=== PATIENT | male | born 1950 | race Caucasian/White ===

== ENCOUNTER 2017-05-17 10:00 | Inpatient (IN) | payer BC, MEDICARE ==
[2017-05-23] MEDS ORDERED: METOCLOPRAMIDE 10 MG TABLET PO ONE (06:00)
[2017-05-23] MEDS ORDERED: VANCOMYCIN HCL 1,000 MG in 0.9 % SODIUM CHLORIDE 250ML 250 ML IVPB ONE (06:00)
[2017-05-23] MEDS ORDERED: FAMOTIDINE 20MG TABLET PO ONE (06:00)
[2017-05-23] MEDS ORDERED: CELECOXIB 100 MG CAPSULE PO ONE (06:00)
[2017-05-23] MEDS ORDERED: CEFAZOLIN 2 Gram 2 GM/50 ML BAG IVPB ONE (06:00)
[2017-05-23] MEDS ORDERED: MECLIZINE 25 MG TABLET PO ONE (06:00)
[2017-05-23] MEDS ORDERED: BUPIVACAINE 0.5% W/EPI MPF 30 ML VIAL IVP ONE (08:55)
[2017-05-23] MEDS ORDERED: TRANEXAMIC ACID 1,000 MG/10 ML ML IV ONE ×2 (08:55→14:00)
[2017-05-23] MEDS ORDERED: 0.9 % SODIUM CHLORIDE 10 ML VIAL IVP ONE (08:55)
[2017-05-23 09:37] LABS: ABO GROUP A; ANTIBODY SCREEN NEGATIVE (NEGATIVE); RH TYPE NEGATIVE
[2017-05-23] MEDS ORDERED: HYDROMORPHONE HCL 2 MG/ML VIAL IM PRN (13:55)
[2017-05-23] MEDS ORDERED: ACETAMINOPHEN W/ CODEINE 300MG/60MG TABLET PO PRN ×2 (13:55)
[2017-05-23] MEDS ORDERED: KETOROLAC 30 MG/ML VIAL IVP PRN ×2 (13:55)
[2017-05-23] MEDS ORDERED: HYDROCODONE/APAP 10/325 TABLET PO PRN (13:55)
[2017-05-23] MEDS ORDERED: NALOXONE 0.4 MG/1 ML VIAL IVP PRN (13:55)
[2017-05-23] MEDS ORDERED: HYDROMORPHONE HCL 1MG/ML **SYRINGE IM PRN (13:55)
[2017-05-23] MEDS ORDERED: DIPHENHYDRAMINE HCL 25 MG CAPSULE PO PRN (13:55)
[2017-05-23] MEDS ORDERED: AL HYDROX/MAG HYDROX 30ML UD PO PRN (13:55)
[2017-05-23] MEDS ORDERED: BISACODYL 10 MG SUPP RC PRN (13:55)
[2017-05-23] MEDS ORDERED: ONDANSETRON HCL IV 4 MG/2 ML VIAL IVP PRN (13:55)
[2017-05-23] MEDS ORDERED: ZOLPIDEM TARTRATE 5 MG TABLET PO PRN (13:55)
[2017-05-23] MEDS ORDERED: ACETAMINOPHEN 325 MG TAB PO PRN (13:55)
[2017-05-23] MEDS ORDERED: MAGNESIUM HYDROXIDE 30 ML UDC PO PRN (13:55)
[2017-05-23] MEDS ORDERED: SUCCINYLCHOLINE 20 MG/ML 10ML IVP ONE (15:47)
[2017-05-23] MEDS ORDERED: LIDOCAINE 2% MDV (20MG/ML) 20ML VIAL IV ONE (15:47)
[2017-05-23] MEDS ORDERED: EPHEDRINE SULFATE 50 MG/ML ML IV ONE (15:47)
[2017-05-23] MEDS ORDERED: PROPOFOL 10 MG/ML VIAL IV ONE (15:47)
[2017-05-23] MEDS ORDERED: FENTANYL PF 100MCG/2ML VIAL IV ONE (15:47)
[2017-05-23] MEDS ORDERED: MIDAZOLAM HCL 2MG/2ML VIAL IV ONE (15:47)
[2017-05-23] MEDS: HYDROCODONE/APAP 10/325 TABLET PO PRN ×2 (15:59→22:46)
--- NOTE | 2017-05-23 16:56 | Rehab Evaluation ---
Patient Information - Patient Information Diagnosis: R knee OA Ordered Treatment: PT Evaluate and Treat Status: Initial Evaluation Surgery: Yes Date of Surgery: 05/23/17 Past Medical/Surgical Hx: PAST MEDICAL/SURGICAL HISTORY Past Surgical History tonsils x's 2 left elbow hernias inguinal and umbilical c scopes PMH - Respiratory Hx Respiratory Disorders Yes Hx Asthma Yes: uses inhaler rarely 1x yr maybe Hx Bronchitis Yes Hx Sleep Apnea Yes: no testing per PMH - Cardiovascular Hx Cardiovascular Disorders Yes Hx Hypertension Yes: off meds now Exercise Tolerance Good PMH - Neuro Hx Neurological Disorders Yes Hx Headaches Yes: occass. 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 blood in urine neg workup PMH - Endocrine Hx Endocrine Disorders No Hx Diabetes No Hx Thyroid Disease No PMH - Musculoskeletal Hx Musculoskeletal Disorders Yes Hx Arthritis Yes Hx Gout Yes PMH - Psych Hx Psychiatric Problems Yes Hx Anxiety Yes Hx Depression Yes PMH - Hematology/Oncology Hx Hematology/Oncology Yes Disorders Hx Anemia Yes: deficent vit B Premorbid Status: Detail (The patient was independent with ambulation however ambulated with numerous gait deviations due to pain complaints.) Social History: Detail (The patient lives with spouse in a single story ranch home with 3 steps at the enterance. The patient's bathroom is equipped with a tub/shower combination, with a tub seat and hand held showerhead and a standard toilet. The bathroom does not have grab bars but the sink and window sill are within reach to push up on. The patient does assist with laundry, but not other java analyst. The patient has a walker and cane at home.) Precautions: [place], Other (WBAT on the R LE.) - Time With Patient Total Time Spent With Patient (Min): 25 Treatment Procedures: Detail (PT Evaluation, gait training. The patient completed LE exercises including quad sets, ankle pumps and SLR x 5 reps.) Subjective Information - Subjective Information Per Patient (The patient had complaints of lower back pain and minimal complaints of R knee pain. The patient did not rate his pain using 0-10 pain scale.) Objective Data - Mental Status Patient Orientation: Oriented x3 - Visual Perception Appears within normal limits for therapeutic activities - ROM Not within normal limits (The patient's R knee extension was 0 degrees. Flexion testing was deferred secondary to complaints of pain and S/P surgery. Patient's UE AROM and L LE AROM was WNL.) - Strength/Tone Within normal limits (The patient's L LE strength was generally 4+ to 5/5. The patient's R LE strength was functional ( The patient was able to complete a SLR. ) - Bed Mobility Independent (The patient was independent with sit to supine transfer. The patient was independent with scooting up in bed with use of trapeze.) - Transfers Independent (The patient was independent with stand to sit transfer and required supervision for safety only with toilet transfer.) - Balance Balance Sitting: Good Balance Standing: Good - Gait Detail (The patient ambulated with wheeled walker 11 feet x 1 and 108 feet x 1 with WBAT on R LE with supervision for safety only. The patient's gait pattern was characterized by decreased R knee flexion and trunk lean to the R during R stance phase.) Therapy Assessment - Therapy Assessment Detail (The patient exhibits decreased R knee AROM and strength as to be expected following surgery. Feel the patient will progress well with mobility.) Problem List - Problem List Physical Therapy Problem List: Detail (1) Limited R knee flexion AROM 2) Use of assistive device with bed mobility 3) Nonambulatory on stairs 4) Decreased R LE strength) Goals - Goals Physical Therapy Goals: 1) The patient will be independent with bed mobility without use of trapeze. 2) The patient will be independent with HEP. 3) The patient will ambulate on 3 steps with supervision for safety, WBAT on the R LE. 4) The patient will be independent with all transfers. Prognosis - Prognosis Good Plan - Plan Physical Therapy Plan: PT 1-2 times a day for gait training, transfer training, bed mobility and instruction in HEP.
[2017-05-23] MEDS: CEFAZOLIN 2 Gram 2 GM/50 ML BAG IVPB SCH (20:24)
[2017-05-23] MEDS: POTASSIUM CHLORIDE/D5-0.9%NACL 20 MEQ/1,000 ML BAG IV SCH ×2 (20:25→22:47)
[2017-05-23] MEDS: DOCUSATE SODIUM 100 MG CAPSULE PO SCH (21:23)
[2017-05-24] MEDS: CEFAZOLIN 2 Gram 2 GM/50 ML BAG IVPB SCH ×2 (02:53→11:17)
[2017-05-24] MEDS: HYDROCODONE/APAP 10/325 TABLET PO PRN ×2 (05:44→11:44)
[2017-05-24 06:28] LABS: HEMATOCRIT 36.2 % (42.0-52.0); HEMOGLOBIN 11.8 gm/dl (14.0-18.0)
[2017-05-24 06:39] LABS: BLOOD UREA NITROGEN 15 mg/dL (8-23); CREATININE 0.8 mg/dL (0.7-1.2); EST GLOMERULAR FILTRATION RATE > 60 mL/min; GLUCOSE,RANDOM 132 mg/dL (74-109)
--- NOTE | 2017-05-24 08:09 | Operative Note ---
DATE: 05/23/2017. PREOPERATIVE DIAGNOSIS: End-stage arthrosis of the right knee. POSTOPERATIVE DIAGNOSIS: End-stage arthrosis of the right knee. PROCEDURE: Cemented right total knee arthroplasty with [employer] II components with a size 7 Oxinium femur, a size 7 stemmed tibial base plate, a 9.0 mm lipped tibial insert, and a 35 mm all-plastic patella. STAFF SURGEON: Rogelio Cheng M.D. ANESTHESIA: Spinal. PREPARATION: ChloraPrep. INDIVIDUAL CONSIDERATIONS: None. PROCEDURE: The patient was taken to the operating room and placed supine on the operating table. He had successful induction of a general anesthetic. His right lower extremity was prepped and draped in the usual fashion. The limb was elevated and the tourniquet was inflated to 300 mm Hg. The patient had a midline approach to the knee. Sharp dissection was carried down through the skin and subcutaneous tissue. Small veins were coagulated with a Bovie. A medial arthrotomy was performed. The patella was everted and the knee was flexed. The patient had profound arthrosis with varus deformity, bone loss medially, and obviously no cartilage. Advanced changes were seen also in the patellofemoral and even in the lateral compartment. Provisional osteophytes were removed, the ACL was sacrificed, and provisional anterior meniscectomies were performed. The capsule was released from the medial proximal tibia. The initial femoral pilot boat captain hole was then made freehand. The intramedullary femoral cutting jig was placed. It was cut in 7.0 degrees of valgus and adjusted for rotation and secured with pins for a 10-mm resection. The initial transverse cut was then made. The skin guide was placed through the anterior and posterior pilot boat captain holes. It was found that a size 7 would be appropriate. The anterior and posterior cuts followed by chamfer cuts were made. Osteophytes which were huge were removed. A size 7 trial was placed and was found to fit well. The tibia was brought forward and the remainder of the meniscal remnants were removed with a Bovie. The patient had huge loose bodies, even posteriorly, and one in the pouch. These were removed. The extra-articular tibial cutting jig was placed. It was cut in neutral with a 3.0 degree AP slope. Care was taken to adjust the rotation and flexion using the extra-articular alignment guide and bony landmarks. It was set for a 9.0 mm resection, keyed off the high lateral side, and secured with pins. When cutting the tibia, care was taken to preserve the PCL insertion on the tibia. Huge medial osteophytes were removed, some of them over 1.0 cm. After I trimmed the osteophytes, I was able to fit a size 7 baseplate trial. This was adjusted for rotation and secured with pins. With a 9.0 mm femoral trial, there was excellent motion and stability. Ligamentous balance and rotation alignment were found to be normal. The femoral pilot boat captain holes were impacted, a triflange tibial stamp was impacted, and these pilot boat captain holes were removed. The patient had a very thick patella. Roughly 9.0 mm of bone was removed, along with trimming osteophytes. I could easily fit a 35 patella. The three pilot boat captain holes were then drilled. The tourniquet was then let down briefly to get bleeders posteriorly and was then placed back up again. The knee was then thoroughly irrigated out with pulsatile Betadine and saline to remove any visual or palpable debris. The bony surfaces were then dried. A size 7 stemmed tibial baseplate was cemented into place followed by impaction of the 9.0 mm lipped highly crosslinked tibial insert. This was followed by cementing in the size 7 Oxinium femur. This was then followed by cementing in the 35 mm patella. Implant surfaces were compressed. Excess cement was removed and after the cement had set there was excellent motion and stability. Ligamentous balance, rotation, alignment, and patellofemoral tracking were normal. No lateral release was required. The tourniquet was then let down. Hemostasis was obtained with a Bovie. A total of 30 cc of Marcaine with epinephrine was then infiltrated in the periosteum, the skin, and subcutaneous tissues with a 20-gauge spinal needle. The capsule was then closed with a running #2 cryl, subcutaneous was closed with running 0 Quill in layers, and the skin was closed with a zip line. A total of 40 cc of saline was mixed with 1.0 gm of tranexamic acid and was injected it into the knee through a sterile 18-gauge needle. The patient had received 1.0 gm of tranexamic acid IV prior to the procedure. The patient tolerated the procedure. Needle and sponge counts were correct. Estimated blood loss was minimal. He was taken back to the recovery room in good condition. An Aquacel dressing was applied. There were no complications. NATHAN
[2017-05-24] MEDS: DOCUSATE SODIUM 100 MG CAPSULE PO SCH (09:09)
[2017-05-24] MEDS ORDERED: FERROUS SULFATE 325 MG TAB PO SCH (10:00)
[2017-05-24] MEDS ORDERED: RIVAROXABAN 10 MG TABLET PO SCH (10:00)
--- NOTE | 2017-05-24 10:27 | Physical Therapy Tx Note ---
Physical Therapy Tx Note - Treatment Note Tolerated: Good Total Time Spent With Patient: 20 Physical Therapy Tx Note: Detail (The patient was independent with supine to sit without use of trapeze. The patient was independent with sit to stand from both high and low surfaces but required more effort with standing from low surface. The patient ambulated on 3 stairs with supervision for safety of 1 with use of folded walker and railing, WBAT on the R LE. The patient ambulated with wheeled walker , WBAT on the R LE a distance of 75 feet x 1 independently. The patient exhibited an improved gait pattern. The patient completed LE exercises including seat heel slides , hamstring sets , entire HEP was reviewed. Knee flexion was measured as 70 degrees. The patient completed all PT skills as an inpatient and is independent with HEP. The patient will be seen this pm for ambulation with the 4 wheeled walker that the patient has at home.) Physical Therapy Problem List: Detail (1) Limited R knee flexion AROM 2) Use of assistive device with bed mobility 3) Nonambulatory on stairs 4) Decreased R LE strength) Physical Therapy Goals: 1) The patient will be independent with bed mobility without use of trapeze. 2) The patient will be independent with HEP. 3) The patient will ambulate on 3 steps with supervision for safety, WBAT on the R LE. 4) The patient will be independent with all transfers. Physical Therapy Plan: PT 1-2 times a day for gait training, transfer training, bed mobility and instruction in HEP.
--- NOTE | 2017-05-24 10:37 | Rehab Evaluation ---
Patient Information - Patient Information Diagnosis: R knee OA Ordered Treatment: OT Evaluate and Treat Status: Initial Evaluation Surgery: Yes Date of Surgery: 05/23/17 Past Medical/Surgical Hx: PAST MEDICAL/SURGICAL HISTORY Past Surgical History tonsils x's 2 left elbow hernias inguinal and umbilical c scopes PMH - Respiratory Hx Respiratory Disorders Yes Hx Asthma Yes: uses inhaler rarely 1x yr maybe Hx Bronchitis Yes Hx Sleep Apnea Yes: no testing per PMH - Cardiovascular Hx Cardiovascular Disorders Yes Hx Hypertension Yes: off meds now Exercise Tolerance Good PMH - Neuro Hx Neurological Disorders Yes Hx Headaches Yes: occass. 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 blood in urine neg workup PMH - Endocrine Hx Endocrine Disorders No Hx Diabetes No Hx Thyroid Disease No PMH - Musculoskeletal Hx Musculoskeletal Disorders Yes Hx Arthritis Yes Hx Gout Yes PMH - Psych Hx Psychiatric Problems Yes Hx Anxiety Yes Hx Depression Yes PMH - Hematology/Oncology Hx Hematology/Oncology Yes Disorders Hx Anemia Yes: deficent vit B Premorbid Status: Detail (Pt lives with spouse in a 1 story house with basement , he will be staying on the first floor. He has 3 steps with frank handrailings at the entrance. He has a tub/shower combination, hand held shower, no grab bars and he usually sits on a 5 gallon bucket to shower. He has a standard height toilet with a riser, no grab bar but the sink and windowsill are close and he uses these for assist. He has a 4 wheeled walker and a cane as well as a item repair manager and long shoe horn. His will be completing all home mgmt, meal prep and laundry after discharge.) Social History: Detail (Supportive .) Precautions: [place], Other (WBAT on the R LE.) - Time With Patient Total Time Spent With Patient (Min): 40 Treatment Procedures: Detail (OT eval low complexity) Subjective Information - Subjective Information Per Patient Objective Data - Pain Pain Present: Yes (2/10 right knee and upper leg) - Mental Status Patient Orientation: Oriented x3 - Visual Perception Appears within normal limits for therapeutic activities - ROM Within normal limits (Frank UE AROM WNL) - Strength/Tone Within normal limits (Frank UE strength WNL.) - Coordination Appears within normal limits for therapeutic activities - Bed Mobility Independent (Ind with supine to sit.) - Transfers Independent (Ind with sit to stand from EOB although he had some difficulty.) - Balance Balance Sitting: Good Balance Standing: Good - Sensation Intact - Gait Detail (Pt able to ambulate in hallway with 2 wheeled walker Indly.) - ADL's/IADL's Detail (Pt educated re: modified LE dressing technique and use of item repair manager and shoe horn. He was able to don t shirt, shorts and velcro closure tennis shoes Indly. Education provided re: tub transfer, pt reports he has a claw foot tub and will be sponge bathing temporarily.) Therapy Assessment - Therapy Assessment Detail (Pt Ind with total body dressing using modified dressing techniques.) Problem List - Problem List Physical Therapy Problem List: Detail (1) Limited R knee flexion AROM 2) Use of assistive device with bed mobility 3) Nonambulatory on stairs 4) Decreased R LE strength) Occupational Therapy Problem List: Detail (No current OT problems identified.) Goals - Goals Physical Therapy Goals: 1) The patient will be independent with bed mobility without use of trapeze. 2) The patient will be independent with HEP. 3) The patient will ambulate on 3 steps with supervision for safety, WBAT on the R LE. 4) The patient will be independent with all transfers. Occupational Therapy Goals: No current OT goals identified. Prognosis - Prognosis Good Plan - Plan Physical Therapy Plan: PT 1-2 times a day for gait training, transfer training, bed mobility and instruction in HEP. Occupational Therapy Plan: Discharge pt from IP OT at this time. Thank you for this referral.
--- NOTE | 2017-05-24 14:54 | Physical Therapy Tx Note ---
Physical Therapy Tx Note - Treatment Note Tolerated: Good Total Time Spent With Patient: 15 Physical Therapy Tx Note: Detail (The patient was fitted for a wheeled walker, bariatric. The patient's 4 wheeled waker was too small and unsafe.) Physical Therapy Problem List: Detail (1) Limited R knee flexion AROM 2) Use of assistive device with bed mobility 3) Nonambulatory on stairs 4) Decreased R LE strength) Physical Therapy Goals: 1) The patient will be independent with bed mobility without use of trapeze. 2) The patient will be independent with HEP. 3) The patient will ambulate on 3 steps with supervision for safety, WBAT on the R LE. 4) The patient will be independent with all transfers. Physical Therapy Plan: The patient has met all PT inpatient goals.
--- NOTE | 2017-05-24 15:40 | Discharge Summary ---
DATE OF ADMISSION: 05/23/17 DATE OF DISCHARGE: 05/24/17 DATE OF SURGERY: 05/23/17 HISTORY: Mr. Linder is a delightful 67-year-old male who presents with end- stage arthrosis of his right knee. He was admitted after right total knee arthroplasty. Postoperatively, he did fantastic. His hospital course was unremarkable. The plan is to DISCHARGE INSTRUCTIONS: The plan is to discharge him home in the care of his family. He is going to go to outpatient PT and he has a family member who is a wound nurse who is going to attend to his wound. He will be given Xarelto for DVT prophylaxis and [place] for pain and he should follow-up in my office in four weeks. DISCHARGE CONDITION: Good. FINAL DIAGNOSIS/PERMANENT DIAGNOSIS: End-stage arthrosis of the right knee. OPERATIONS AND PROCEDURES: Cemented right total knee arthroplasty. JOB NUMBER: [id number] MTDD
== END 2017-05-24 16:10 | disposition home or self-care (01) | DRG 470 ==
LOC: MEDSURG 05-23 08:52
PROVIDERS: ADMIT Orthopaedic Surgery; ATTEND Orthopaedic Surgery
PROC: 0SRC069 Replacement of Right Knee Joint with Oxidized Zirconium on Polyethylene Synthetic Substitute, Cemented, Open Approach (ICD-10-PCS; principal; 2017-05-23 11:00)
DX: M17.11 Unilateral primary osteoarthritis, right knee (principal); J44.9 Chronic obstructive pulmonary disease, unspecified; I10 Essential (primary) hypertension; Z87.891 Personal history of nicotine dependence
CPT/HCPCS: 80048; 85014; 85018; 86850; 86900; 86901; 94760; 97165; 97530; 99233; J0330; J3480; J7050

== ENCOUNTER 2017-07-18 08:44 | Inpatient (IN) | payer BC, MEDICARE ==
[~2017-07-18 08:44] MED LIST: ACETAMINOPHEN 1,000 MG/100 ML BTL IV ONE; CEFAZOLIN 2 Gram 2 GM/50 ML BAG IVPB ONE; CELECOXIB 100 MG CAPSULE PO ONE; FAMOTIDINE 20MG TABLET PO ONE; MECLIZINE 25 MG TABLET PO ONE; METOCLOPRAMIDE 10 MG TABLET PO ONE; VANCOMYCIN HCL 1,000 MG in 0.9 % SODIUM CHLORIDE 250ML 250 ML IVPB ONE
[2017-07-18 09:42] LABS: ABO GROUP A; ANTIBODY SCREEN NEGATIVE (NEGATIVE); RH TYPE NEGATIVE
[2017-07-18] MEDS ORDERED: AL HYDROX/MAG HYDROX 30ML UD PO PRN (13:05)
[2017-07-18] MEDS ORDERED: HYDROCODONE/APAP 10/325 TABLET PO PRN (13:05)
[2017-07-18] MEDS ORDERED: DIPHENHYDRAMINE HCL 25 MG CAPSULE PO PRN (13:05)
[2017-07-18] MEDS ORDERED: BISACODYL 10 MG SUPP RC PRN (13:05)
[2017-07-18] MEDS ORDERED: HYDROMORPHONE HCL 1MG/ML **SYRINGE IM PRN (13:05)
[2017-07-18] MEDS ORDERED: ACETAMINOPHEN W/ CODEINE 300MG/60MG TABLET PO PRN ×2 (13:05)
[2017-07-18] MEDS ORDERED: ACETAMINOPHEN 325 MG TAB PO PRN (13:05)
[2017-07-18] MEDS ORDERED: NALOXONE 0.4 MG/1 ML VIAL IVP PRN (13:05)
[2017-07-18] MEDS ORDERED: HYDROMORPHONE HCL 2 MG/ML VIAL IM PRN (13:05)
[2017-07-18] MEDS ORDERED: KETOROLAC 30 MG/ML VIAL IVP PRN ×2 (13:05)
[2017-07-18] MEDS ORDERED: TRAMADOL HCL 50 MG TABLET PO PRN (13:05)
[2017-07-18] MEDS ORDERED: MAGNESIUM HYDROXIDE 30 ML UDC PO PRN (13:05)
[2017-07-18] MEDS ORDERED: ZOLPIDEM TARTRATE 5 MG TABLET PO PRN (13:05)
[2017-07-18] MEDS ORDERED: ONDANSETRON HCL IV 4 MG/2 ML VIAL IVP PRN (13:05)
[2017-07-18] MEDS: POTASSIUM CHLORIDE/D5-0.9%NACL 20 MEQ/1,000 ML BAG IV SCH ×2 (14:24→22:02)
[2017-07-18] MEDS ORDERED: MIDAZOLAM HCL 2MG/2ML VIAL IV ONE (16:02)
[2017-07-18] MEDS ORDERED: TRANEXAMIC ACID 1,000 MG/10 ML ML IV ONE ×2 (16:02)
[2017-07-18] MEDS ORDERED: 0.9 % SODIUM CHLORIDE 10 ML VIAL IVP ONE (16:02)
[2017-07-18] MEDS ORDERED: BUPIVACAINE 0.75% W/EPI MPF 30ML VIAL IVP ONE (16:02)
[2017-07-18] MEDS ORDERED: FENTANYL PF 100MCG/2ML VIAL IV ONE (16:02)
[2017-07-18] MEDS ORDERED: PROPOFOL 10 MG/ML VIAL IV ONE (16:02)
--- NOTE | 2017-07-18 16:27 | Rehab Evaluation ---
Patient Information - Patient Information Diagnosis: L knee OA Ordered Treatment: PT Evaluate and Treat Status: Initial Evaluation Surgery: Yes Date of Surgery: 07/18/17 Past Medical/Surgical Hx: PAST MEDICAL/SURGICAL HISTORY Past Surgical History RTKA tonsils x's 2 left elbow hernias inguinal and umbilical c scopes PMH - Respiratory Hx Respiratory Disorders Yes Hx Asthma Yes: uses inhaler rarely 1x yr maybe Hx Bronchitis Yes Hx Sleep Apnea Yes: no testing per PMH - Cardiovascular Hx Cardiovascular Disorders Yes Hx Hypertension Yes: off meds now PMH - Neuro Hx Neurological Disorders Yes Hx Headaches Yes: occass. 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 blood in urine neg workup Hx Urinary Tract Infection Yes: recent since last surgery just finished ABX PMH - Endocrine Hx Endocrine Disorders No Hx Diabetes No Hx Thyroid Disease No PMH - Musculoskeletal Hx Musculoskeletal Disorders Yes Hx Arthritis Yes Hx Gout Yes PMH - Psych Hx Psychiatric Problems Yes Hx Anxiety Yes Hx Depression Yes PMH - Hematology/Oncology Hx Hematology/Oncology Yes Disorders Hx Anemia Yes: deficent vit B Premorbid Status: Detail (The patient was independent with all mobility prior to surgery.) Social History: Detail (The patient lives with spouse in a single story home with 4 steps at the enterance with 2 railings. The patient's bathroom is equipped with a claw tub and raised toilet seat. The patient has a standard cane, and wheeled walker.) Precautions: [place], Other (WBAT on the L LE) - Time With Patient Total Time Spent With Patient (Min): 30 Treatment Procedures: Detail (Initial Evaluation.) Subjective Information - Subjective Information Per Patient (The patient had complaints of L knee pain .) Objective Data - Pain Pain Present: Yes Pain Intensity: 6 Pain Scale Used: Numeric (1 - 10) - Mental Status Patient Orientation: Oriented x3 - Visual Perception Appears within normal limits for therapeutic activities - ROM Not within normal limits (The patient's L knee AROM was not formally tested secondary to status post surgery.) - Strength/Tone Not within normal limits (The patient's R LE strength is generally 4 to 4+/5. The patient's L LE strength was not formally tested , however it was functional ie: the patient was able to complete a SLR.) - Bed Mobility Independent (The patient was independent with supine to and from sit transfer and scooting up in bed.) - Transfers Independent (The patient was independent with sit to and from stand transfer) - Balance Balance Sitting: Good Balance Standing: Good - Sensation Intact - Gait Detail (The patient ambulated with wheeled walker a distance of 75 feet x 1 with supervision of one plus to handle IV , WBAT on the L LE.) Therapy Assessment - Therapy Assessment Detail (The patient was independent with bed mobility , transfers and supervision for with ambulation for safety. Feel the patient will progress well with mobility.) Problem List - Problem List Physical Therapy Problem List: Detail (1) Decreased L knee AROM and strength as to be expected following surgery. 2) Nonambulatory on stairs) Goals - Goals Physical Therapy Goals: 1) The patient will be independent with ambulation with assistive device on levels and stairs WBAT on the L LE. 2) The patient will be independent with all transfers. 3) The patient will be independent with HEP Prognosis - Prognosis Good Plan - Plan Physical Therapy Plan: PT 1-2 times a day for gait training, transfer training and instruction in HEP until inpatient PT goals are met.
--- NOTE | 2017-07-18 17:08 | Operative Note ---
DATE OF SURGERY: 07/18/17 PREOPERATIVE DIAGNOSIS: PROFOUND END-STAGE ARTHROSIS OF THE LEFT KNEE. POSTOPERATIVE DIAGNOSIS: PROFOUND END-STAGE ARTHROSIS OF THE LEFT KNEE. PROCEDURE: CEMENTED LEFT TOTAL KNEE ARTHROPLASTY USING JACKSON-NEPHEW ANJU II COMPONENTS WITH A SIZE 7 OXINIUM FEMUR, A SIZE 7 STEM TIBIAL BASEPLATE, A 9 mm LIPPED HIGHLY CROSSLINKED TIBIAL INSERT, AND A 35 MM ALL-PLASTIC PATELLA. STAFF SURGEON: CLAUDETTE TRINH M.D. ANESTHESIA: SPINAL. PREPARATION: CHLORAPREP. INDIVIDUAL CONSIDERATIONS: NONE. PROCEDURE: The patient was taken to the Operating Room and placed supine on the operating table. He had a successful induction of a spinal anesthetic. His left lower extremity was prepped and draped in the usual fashion. The limb was elevated. The tourniquet was inflated to 300 mmHg. The patient had a midline approach to the knee. Sharp dissection was carried down through the skin and subcutaneous tissues. Small veins were coagulated with a Bovie. A medial arthrotomy was performed. Patella was everted and the knee was flexed. He had profound end-stage arthrosis. He had a loose body almost the size of a golf ball, a large patellar osteophytes was removed. Fat pad was resected, ACL was sacrificed, and provisional anterior meniscectomies were performed. He had a very severe varus deformity with bone loss medially. The initial femoral airline pilot flight instructor hole was then made freehand. The intramedullary femoral cutting jig was placed. It was cut in 7.0 degrees of valgus and adjusted for rotation and secured with pins for a 10 mm resection. The initial transverse cut was then made. Skin guide was placed for the anterior and posterior airline pilot flight instructor holes. It was found that a size 7 would be appropriate. The anterior and posterior cuts followed by chamfer cuts were made, osteophytes removed, and a size 7 trial was found to fit well. The tibia was brought forward and the remainder of the meniscal remnants were removed with a Bovie. The extra-articular tibial cutting jig was placed and it was cut in neutral with a 3-degree AP slope. Care was taken to adjust for rotation and flexion using the extra-articular alignment guide and bony landmarks. It was set for a 9 mm resection and keyed off the high lateral side and secured with pins. When cutting the tibia, care was taken to preserve the PCL insertion on the tibia. After making the cut and removing osteophytes, it was found that a size 7 would be appropriate. It was adjusted for rotation and secured with pins. With an 11 mm trial and the femoral trial, there was excellent motion and stability. Ligamentous balance, rotation, and alignment were thought to be normal. The femoral airline pilot flight instructor holes were impacted and the triflange tibial stamp was impacted, and these trial components were removed. The patient had a very thick patella and roughly 9 mm of bone was removed freehand. I was easily able to fit a 35 patella and the three airline pilot flight instructor holes were then drilled. The tourniquet was let down briefly to get good bleeders posteriorly then placed back up again. The knee was then thoroughly irrigated out with pulsatile Betadine and saline to remove any visual or palpable debris. Bony surfaces were then dried. A size 7 stemmed tibial baseplate was cemented into place, followed by impaction of the 11 mm lipped tibial insert, followed by cementing in the size 7 Oxinium femur, followed by cementing of a 35 mm patella. Implant surfaces were compressed, excess cement was removed, and after the cement had set, there was excellent motion and stability, ligamentous balance, rotation, alignment, and patellofemoral tracking were normal, and no lateral release was required. Again, thorough irrigation. The tourniquet was let down. Hemostasis was obtained with a Bovie. The skin, subcutaneous, and periosteum were then infiltrated with 30 mL of 0.75% Marcaine with Epinephrine. The capsule was then closed with a running #2 quill, the subcutaneous was closed in layers with running 0 quill, and the skin was closed with jarod. The patient did receive 1 gram of Tranexamic Acid preoperatively. I mixed 1 gram of Tranexamic Acid with 30 mL of saline and this was injected into the knee through a sterile 18-gauge needle, and a sterile Bulkee compressive Aquacel -type dressing was applied. The patient tolerated the procedures well. Needle and sponge counts were correct. Estimated blood loss was minimal and he was taken back to the Recovery Room in good condition. There were no complications. cc: Dr. Leobardo Adam JOB NUMBER: [id number] MTDD
[2017-07-18] MEDS: CEFAZOLIN 2 Gram 2 GM/50 ML BAG IVPB SCH (19:20)
[2017-07-18] MEDS: HYDROCODONE/APAP 10/325 TABLET PO PRN (20:34)
[2017-07-18] MEDS ORDERED: TAMSULOSIN HCL 0.4 MG CAP.ER.24H PO SCH (22:00)
[2017-07-18] MEDS: DOCUSATE SODIUM 100 MG CAPSULE PO SCH (22:01)
[2017-07-19] MEDS: HYDROCODONE/APAP 10/325 TABLET PO PRN ×4 (03:27→17:29)
[2017-07-19] MEDS: CEFAZOLIN 2 Gram 2 GM/50 ML BAG IVPB SCH ×2 (05:10→11:48)
[2017-07-19 06:34] LABS: HEMATOCRIT 34.7 % (42.0-52.0); HEMOGLOBIN 10.8 gm/dl (14.0-18.0)
[2017-07-19 06:50] LABS: BLOOD UREA NITROGEN 11 mg/dL (8-23); CREATININE 0.8 mg/dL (0.7-1.2); EST GLOMERULAR FILTRATION RATE > 60 mL/min; GLUCOSE,RANDOM 123 mg/dL (74-109)
[2017-07-19] MEDS: DOCUSATE SODIUM 100 MG CAPSULE PO SCH (09:19)
[2017-07-19] MEDS ORDERED: RIVAROXABAN 10 MG TABLET PO SCH (10:00)
[2017-07-19] MEDS ORDERED: MAGNESIUM OXIDE 400 MG TABLET PO SCH (10:00)
[2017-07-19] MEDS ORDERED: FERROUS SULFATE 325 MG TAB PO SCH (10:00)
--- NOTE | 2017-07-19 10:25 | Physical Therapy Tx Note ---
Physical Therapy Tx Note - Treatment Note Tolerated: Good (Pt. reported 6/10 pain at start of tx, increased to 8/10 during gait training and went back down to 5/10 at end of tx. Pt. denied nausea and SOB.) Total Time Spent With Patient: 30 Physical Therapy Tx Note: Detail (Pt. ambulated ~20 feet with front wheeled walker and CGA. Pt. ambulated to the bathroom and was successful with void attempt. Pt. performed the following seated exercises: heel slides, 10x; hip abduction isometrics, 10x; hip adduction isometrics, 10x; ankle pumps 30 repetitions. Pt. was independent with bed mobility and transfers. Pt. verbalized understanding of HEP, precautions, and the disease process. Pt. was left seated with call light available and cryo LLE.) Physical Therapy Problem List: Detail (1) Decreased L knee AROM and strength as to be expected following surgery. 2) Nonambulatory on stairs) Physical Therapy Goals: 1) The patient will be independent with ambulation with assistive device on levels and stairs WBAT on the L LE. Prognosis: Good (Pt. is expected to complete stairs in the PM session and be appropriate for D/C to home environment.) Physical Therapy Plan: Pt. is to be seen for stair training at 2 o'clock on 07-19, and be D/C from inpatient PT if stair training skills have been met for safe return to home environment.
--- NOTE | 2017-07-19 12:35 | Rehab Evaluation ---
Patient Information - Patient Information Diagnosis: L knee OA Ordered Treatment: OT Evaluate and Treat Status: Initial Evaluation Surgery: Yes Date of Surgery: 07/18/17 Past Medical/Surgical Hx: PAST MEDICAL/SURGICAL HISTORY Past Surgical History RTKA tonsils x's 2 left elbow hernias inguinal and umbilical c scopes PMH - Respiratory Hx Respiratory Disorders Yes Hx Asthma Yes: uses inhaler rarely 1x yr maybe Hx Bronchitis Yes Hx Sleep Apnea Yes: no testing per PMH - Cardiovascular Hx Cardiovascular Disorders Yes Hx Hypertension Yes: off meds now PMH - Neuro Hx Neurological Disorders Yes Hx Headaches Yes: occass. 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 blood in urine neg workup Hx Urinary Tract Infection Yes: recent since last surgery just finished ABX PMH - Endocrine Hx Endocrine Disorders No Hx Diabetes No Hx Thyroid Disease No PMH - Musculoskeletal Hx Musculoskeletal Disorders Yes Hx Arthritis Yes Hx Gout Yes PMH - Psych Hx Psychiatric Problems Yes Hx Anxiety Yes Hx Depression Yes PMH - Hematology/Oncology Hx Hematology/Oncology Yes Disorders Hx Anemia Yes: deficent vit B Premorbid Status: Detail (The patient was independent with all mobility prior to surgery. Daughter and spouse assisted with some I/ADL's (i.e. meal prep), but pt. was mostly independent prior to sx. Pt. 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 reports does not interfere with activities at this time. Pt. reports LUE CTS and a bone spur in neck that causes occasional numbness in RUE.) Social History: Detail (The patient lives with spouse in a single story home with 4 steps at the entrance with 2 railings. The patient's bathroom is equipped with a claw tub and raised toilet seat. The patient has a carpenter mate, standard cane, and wheeled walker.) Precautions: [place], Other (WBAT on the L LE) - Time With Patient Total Time Spent With Patient (Min): 25 Objective Data - Pain Pain Present: Yes (5/10 L knee pain) - Mental Status Patient Orientation: Oriented x3 - Visual Perception Appears within normal limits for therapeutic activities - ROM Within normal limits (BUE) - Strength/Tone Within normal limits (BUE 4+/5 MMT) - Coordination Appears within normal limits for therapeutic activities - Balance Balance Sitting: Good - Sensation Intact (occasional numbness BUE hands/fingers, but light touch in tact when tested.) - ADL's/IADL's Detail (Pt. was sore and fatigued d/t just finishing with PT prior to eval and was seated in chair, so was not observed transfering and declined to participate in ADL activities (he just performed some). Educ. was provided in adaptive dressing techniques and use of AE (i.e. carpenter mate, sock aid, tub bench for shower t/f's, etc.). Pt. verbalized understanding and described how he would dress BLE. Pt. was unable to reach BLE while seated in chair. Educ. provided in use of carpenter mate tool to assist dressing and maximize safety. Pt. stated his daughter (who was present) is a wound care nurse, and will be available to assist as needed, including dressing and bathing. Educ. provided in using OT CTS wrist splint at night to prevent progression of numbness, and options to build up & soften walker or cane handles if the frequent gripping starts to bother his hands.) Therapy Assessment - Therapy Assessment Detail (Discussed potential of in-home OT eval to maximize safety and independence, but pt. & family declined d/t daughter's expertise as a nurse. In- pt. skilled OT services not recommended at this time. Pt. has awareness of available AE, dressing techniques, and a positive support system ( and daughter) to help prn.) Patient Education - Patient Education Teaching Topic: Community Resources, Equipment Use Response: Verbalize Understanding Teaching Method: Discussion Teaching Recipient: Patient, Family ( & daughter (nurse)) Barriers To Learning: None Problem List - Problem List Physical Therapy Problem List: Detail (1) Decreased L knee AROM and strength as to be expected following surgery. 2) Nonambulatory on stairs) Goals - Goals Physical Therapy Goals: 1) The patient will be independent with ambulation with assistive device on levels and stairs WBAT on the L LE. Prognosis - Prognosis Good Plan - Plan Physical Therapy Plan: Pt. is to be seen for stair training at 2 o'clock on 07-19, and be D/C from inpatient PT if stair training skills have been met for safe return to home environment. Occupational Therapy Plan: D/C from in-pt. OT services at this time. Pt. was instructed to call rehab dept. if questions/concerns when arrive home.
--- NOTE | 2017-07-19 14:55 | Physical Therapy Tx Note ---
Physical Therapy Tx Note - Treatment Note Tolerated: Good Total Time Spent With Patient: 20 Physical Therapy Tx Note: Detail (Pt. reports pain in knee is 6/10 right now. Pt. completed supine to sit transfer in bed, requiring verbal cueing to use his opposite leg to hook his other leg to help complete a safe transfer. Pt. completed an independent sit to stand transfer CGA x1 with the use of a front- wheeled walker. Pt. ambulated roughly 110 ft independently CGA x1 with front- wheeled walker. Pt. independently descending and ascended 3 steps for a total of 6 steps CGA x1 with the use of hand railing and walker for support demonstrating appropriate use of leg when going up and down. Pt. does have four steps to ascend/descend at home, but PT believes he is safe to transition home due to him having experience from having his other knee replaced in the past, bilateral hand railling, and family support at home to ensure a safe transfer. Pt. verbalized understanding of how to complete transfers and stairs at home and verbalized understanding of his precautions. Pt. completed a sit to supine transfer independently, but required verbal cueing of using his opposite leg to hook his other leg to complete a safe transfer. Pt. has met all goals for inpatient PT and is ready for discharge. Pt. was left supine in bed with IPC's hooked up and cold pack placed on knee. Call light was made available and nursing staff was notified.) Physical Therapy Problem List: Detail (1) Decreased L knee AROM and strength as to be expected following surgery. 2) Nonambulatory on stairs) Physical Therapy Goals: 1) The patient will be independent with ambulation with assistive device on levels and stairs WBAT on the L LE. (Goal MET) Prognosis: Good Physical Therapy Plan: Pt. has met all goals for inpatient PT and is to be discharged from inpatient PT services at this time.
[2017-07-19] MEDS: POTASSIUM CHLORIDE/D5-0.9%NACL 20 MEQ/1,000 ML BAG IV SCH (15:18)
--- NOTE | 2017-07-19 20:02 | Discharge Summary ---
DATE OF ADMISSION: 07/18/17 DATE OF DISCHARGE: 07/19/17 DATE OF SURGERY: 07/18/17 HISTORY: Mr. Garnett is a delightful 67-year-old male who presents with profound end-stage arthrosis of his left knee. He was admitted after a left total knee arthroplasty. Postoperatively he did great. His hospital course was unremarkable. He was independent after surgery. DISCHARGE INSTRUCTIONS: The plan is to discharge him to home into the care of his family. He has a daughter that's a wound care nurse and she's going to remove his sutures in two weeks. He is going to start outpatient physical therapy this Monday. He will be maintained on Xarelto for DVT prophylaxis for 15 days and I want him to take a regular Aspirin daily for 30 days. He will follow-up in my office in four weeks. FINAL DIAGNOSIS/PRIMARY DIAGNOSIS: END-STAGE ARTHROSIS OF THE LEFT KNEE. SECONDARY DIAGNOSES: OPERATIVE BLOOD LOSS ANEMIA. OPERATIONS AND PROCEDURES: CEMENTED LEFT TOTAL KNEE ARTHROPLASTY. DISCHARGE CONDITION: GOOD. JOB NUMBER: [id number] MTDD
== END 2017-07-19 17:50 | disposition home health service (06) | DRG 470 ==
LOC: MEDSURG 08:44
PROVIDERS: ADMIT Orthopaedic Surgery; ATTEND Orthopaedic Surgery
PROC: 0SRD069 Replacement of Left Knee Joint with Oxidized Zirconium on Polyethylene Synthetic Substitute, Cemented, Open Approach (ICD-10-PCS; principal; 2017-07-18 11:00)
DX: M17.12 Unilateral primary osteoarthritis, left knee (principal)
CPT/HCPCS: 80048; 85014; 85018; 86850; 86900; 86901; 97110; 97116; 97165; J1170; J3480; J3490; J7050